=== PATIENT | male | born 1995 | race Asian ===

== ENCOUNTER 2020-01-24 13:06 | Emergency (ER) | payer OTHER ==
[~2020-01-24] VITALS: Ht 167.6 cm; Wt 77.6 kg
[2020-01-24 13:16] VITALS: BP 117/72; Ht 167.6 cm; Wt 77.6 kg
== END 2020-01-24 14:17 | disposition home or self-care (01) ==
LOC: ED 13:06
DX: S63.91XA Sprain of unspecified part of right wrist and hand, initial encounter (principal); X58.XXXA Exposure to other specified factors, initial encounter; Y93.89 Activity, other specified; Y92.89 Other specified places as the place of occurrence of the external cause; Y99.8 Other external cause status
CPT/HCPCS: Q0092